=== PATIENT | male | born 1935 | race Caucasian/White ===

== ENCOUNTER 2022-02-16 08:29 | Outpatient (REF) | payer MEDICARE, SELFPAY ==
--- NOTE | ~2022-02-16 | US_ITS ---
EXAMINATION: US ABDOMEN COMPLETE CLINICAL INFORMATION: Abdominal pain. COMPARISON: None TECHNIQUE: Real-time imaging of the abdominal viscera. FINDINGS: PANCREAS: Not well visualized due to bowel gas ABDOMINAL AORTA: The proximal, mid, and distal segments are normal in caliber. INFERIOR VENA CAVA: Visualized portions are normal. LIVER: Liver echotexture is increased. The liver is normal in size. The liver contour is normal. No focal hepatic lesion. There is no intrahepatic biliary duct dilatation seen. GALLBLADDER: Normal. The gallbladder is physiologically distended without evidence of stones, sludge, polyps, wall thickening or pericholecystic fluid. COMMON BILE DUCT: Normal in caliber measuring 0.6 cm in diameter. RIGHT KIDNEY: Normal. No hydronephrosis. No renal calculi or focal parenchymal lesions. The kidney measures 10.1 cm in maximum dimension. LEFT KIDNEY: Normal. No hydronephrosis. No renal calculi or focal parenchymal lesions. The kidney measures 10.8 cm in maximum dimension. SPLEEN: Normal. The spleen measures 9.6 cm in maximum dimension. FREE FLUID: None. US/US abdomen complete IMPRESSION: Echogenic liver. Differential would include fatty infiltration and hepatocellular disease. Non-visualization of the pancreas. Otherwise unremarkable exam.
== END 2022-02-16 08:30 | disposition home or self-care (01) ==
LOC: HO.HMGCX 08:29
PROVIDERS: Visit Provider Internal Medicine
DX: R79.89 Other specified abnormal findings of blood chemistry (principal)
CPT/HCPCS: 76700

== ENCOUNTER 2023-12-09 15:06 | Outpatient (REF) | payer MEDICARE, SELFPAY ==
[2023-12-09 17:20] LABS: MANUAL DIFF FLAG NO
[2023-12-09 17:46] LABS: Basophils Absolute Auto 0.1 X10*3/uL (0.0-0.2); Basophils Percent Auto 0.7 % (0-2); Eosinophils Absolute Auto 0.1 X10*3/uL (0.0-0.4); Eosinophils Percent Auto 1.9 % (0-4); Hematocrit 41.7 % (42.0-52.0); Hemoglobin 14.9 g/dl (14.0-18.0); Imm Gran Abs Auto 0.04 X10*3/uL (0.00-0.03); Imm Gran Pct Auto 0.6 % (0.0-0.4); Lymphocytes Absolute Auto 2.5 X10*3/uL (1.2-4.9); Mean Corpuscular HGB Conc 35.7 g/dl (31.0-36.0); Mean Corpuscular Hemoglobin 36.5 pg (27.0-33.0); Mean Corpuscular Volume 102.2 fL (80.0-98.0); Mean Platelet Volume 9.5 fL (9.4-12.4); Monocytes Absolute Auto 0.7 X10*3/uL (0.1-1.2); Monocytes Percent Auto 10.2 % (2-11); Neutrophils Absolute Auto 3.8 x10*3/uL (2.0-8.3); Neutrophils Percent Auto 52.6 % (45-73); Platelet Count 321 X10*3/uL (160-400); Red Blood Count 4.08 X10*6/uL (4.60-5.80); Red Cell Distribution Width 12.3 % (11.0-16.0); White Blood Count 7.2 X10*3/uL (4.8-10.8)
[2023-12-09 18:13] LABS: Alanine Aminotransferase 39 U/L (0-40); Albumin Level 4.1 g/dL (3.5-5.0); Alkaline Phosphatase 74 U/L (39-117); Anion Gap 10 (12-20); Aspartate Amino Transferase 43 U/L (5-37); Bilirubin Total 0.7 mg/dL (0.0-1.0); Blood Urea Nitrogen 9 mg/dL (9-16); Calcium 9.4 mg/dL (8.4-10.2); Carbon Dioxide 28 mmol/L (22-29); Chloride 102 mmol/L (96-108); Estimated Glomerular Filt Rate > 60; Glucose Random 88 mg/dL (60-115); Potassium 3.8 mmol/L (3.3-5.1); Sodium 136 mmol/L (135-145); Total Protein 7.4 g/dL (6.5-8.0)
[2023-12-09 18:22] LABS: TSH reflex Free T4 3.32 uIU/mL (0.32-4.0)
[2023-12-09 18:41] LABS: Folate 3.7 ng/mL (> or = 4.0); Vitamin B12 172 pg/mL (200-900)
== END 2023-12-09 15:07 | disposition home or self-care (01) ==
LOC: HO.CHCLDS 15:06
PROVIDERS: Visit Provider Internal Medicine
DX: R79.89 Other specified abnormal findings of blood chemistry (principal); E87.1 Hypo-osmolality and hyponatremia; D75.89 Other specified diseases of blood and blood-forming organs
CPT/HCPCS: 36415; 80053; 82607; 82746; 84443; 85025

== ENCOUNTER 2024-11-09 12:39 | Outpatient (REF) | payer MEDICARE, SELFPAY ==
--- OUTSIDE RECORDS SUMMARY | 2024-11-09 13:01 | XMS_ITS | Encounter Summary ---
Author Organization [employer] Address [address] [place] [address] Care Team Providers Care Counseling Director Name Role Phone Lisseth Cervantes MD Primary Care Provider [phone] Encounter Details Date Type Department Care Team (Latest Contact Info) Description 11/09/2024 Travel Social History Tobacco Use Types Packs/Day Years Used Date Smoking Tobacco: Never Smokeless Tobacco: Never Depression Answer Date Recorded Patient Health Questionnaire-9 Score 1 12/28/2022 Housing Stability Answer Date Recorded What is your housing situation today? Not on thang e 12/23/[address] you li ve. Do you have problems with any of the following? None of the above 12/23/2023 Food Insecurity Answer Date Recorded Within the past 12 months, y ou worried that your food would run out before you got money to buy more: Never True 05/11/2023 Within the past 12 months,th e food you bought just didn't last and you didn't have enough money to get more: Never True 05/2023 Transportation Answer Date Recorded In the past 12 months, has l ack of transportation kept you from medical appts, meetings, work or from getting things needed for daily living? No 05/11/2023 Utilities Answer Date Recorded In the past 12 months, has t he electric, gas, oil or water company threatened to shut off services in your home? No 05/11/2023 Depression Answer Date Recorded Patient Health Questionnaire-2 Score 0 12/28/2022 Sex and Gender Information Value Date Recorded Sex Assigned at Male 04/30/2022 10:32 AM EDT Legal Sex Male 10:32 AM EDT Gender Identity Male 04/30/2022 10:32 AM EDT Sexual Orientation Choose not to disclose 2021 10:32 AM EDT documented as of this encounter Plan of Treatment Not on file documented as of this encounter Visit Diagnoses Not on filedocumented in this encounter Additional Health Concerns Assessment Noted Time PHQ-9 Depression Total Score: 1 12/29/19 23 2:08 PM EDT documented as of this encounter Care Teams Counseling Director Relationship Specialty Start Date End Date Lisseth Cervantes MD [address] [place] [id number] PCP - General Internal Medicine 07/01/18 documented as of this encounter
--- OUTSIDE RECORDS SUMMARY | 2024-11-09 13:01 | XMS_ITS | Encounter Summary ---
Author Organization [employer] Address [address] [facility] 7[address] [place] [address] Care Team Providers Care Wire Photo Operator Name Role Phone Lisseth Cervantes MD Primary Care Provider [phone] Encounter Details Date Type Department Care Team ([facility] st Contact Info) Description 11/03/2024 Telephone [facility] [address] [place], [place] [phone] Lisseth Cervantes MD [address] [place], [place] [phone] Social History Tobacco Use Types Packs/Day Years [...] documented as of this encounter Care Teams Wire Photo Operator Relationship Specialty Start Date End Date Lisseth Cervantes MD [address] [place] [id number] PCP - General Internal Medicine 07/01/18 documented as of this encounter
--- OUTSIDE RECORDS SUMMARY | 2024-11-09 13:01 | XMS_ITS | Encounter Summary ---
Author Organization [employer] Address [address] [place] [address] 7t [place] [address] Care Team Providers Care Manager Talent Name Role Phone Lisseth Cervantes MD Primary Care Provider [phone] Encounter Details Date Type Department Care Team ([facility] st Contact Info) Description 01/04/2023 Orders Only [facility] [address] [place], [place] [phone] Lisseth Cervantes MD [address] [place], [place] [phone] Macrocytosis (Primary Dx) Social History Tobacco Use Types Packs/Day Years Used Date Smoking Tobacco: Never Smokeless Tobacco: Never Depression Answer Date Recorded Patient Health Questionnaire-9 Score 1 12/28/2022 Depression Answer Date Recorded Patient Health Questionnaire-2 Score 0 12/28/2022 Sex and Gender Information Value Date Recorded Sex Assigned at Male 04/30/2022 10:32 AM EDT Legal Sex Male 10:32 AM EDT Gender Identity Male 04/30/2022 10:32 AM EDT Sexual Orientation Choose not to disclose 2021 10:32 AM EDT COVID-19 Exposure Response Date Recorded In the last 10 days, have yo u been in contact with someone who was confirmed or suspected to have Coronavirus/COVID-19? No / Unsure 12/28/2022 1:50 PM EDT documented as of this encounter Plan of Treatment Scheduled Orders Name Type Priority Associated Diagnoses Orde r Schedule TSH W/Reflex to FT4 Lab Routine Macrocytosis Expected: 01/04/2023 (Approximate), Expires: 01/05/2024 CBC auto differential Lab Routine Macrocytosis Expected: 01/04/2023 (Approximate), Expires: 01/05/2024 Basic Metabolic Panel Lab Routine Macrocytosis Expected: 01/04/2023 (Approximate), Expires: 01/05/2024 documented as of this encounter Visit Diagnoses Diagnosis Macrocytosis- Primary Other specified diseases of blood and blood-forming organs documented in this encounter Additional Health Concerns Assessment Noted Time PHQ-9 Depression Total Score: 1 12/29/19 23 2:08 PM EDT documented as of this encounter Care Teams Manager Talent Relationship Specialty Start Date End Date Lisseth Cervantes MD [address] [place] [id number] PCP - General Internal Medicine 07/01/18 documented as of this encounter
--- OUTSIDE RECORDS SUMMARY | 2024-11-09 13:01 | XMS_ITS | Clinical Summary ---
Author Organization [employer] Address [address] [facility] 7t [place] [address] Care Team Providers Care Police Inspector Name Role Phone Lisseth Cervantes MD Primary Care Provider [phone] Allergies No known active allergies Medications Diclofenac Sodium 1 % gelIndications:L eft arm pain To apply to the affected area 3 times a day 100 g 4 Active cyanocobalamin (Vitamin B-12) 1000 MCG tabletIndication s:Vitamin B12 deficiency Take 1 tablet (1,000 mcg) by mouth Once per day. 30 tablet 11 4 12/10/19 25 Active folic acid (Folvite) 1 MG tabletIndication s:Folic acid deficiency (non anemic) Take 1 tablet (1 mg) by mouth Once per day. 30 tablet 11 4 12/10/19 25 Active tadalafil (Cialis) 5 MG tabletIndication s:Other male erectile dysfunction Take 1 tablet (5 mg) by mouth Once per day. 30 tablet 3 5 03/09/20 25 Active Active Problems Problem Noted Date Diagnosed Date Macrocytosis 12/27/2021 Finding of above normal blood pressure 2 Encounters Date Type Department Care Team Description 11/09/2024 11:30 AM EDT Office Visit [facility] [address] [place] [address] Lisseth Cervantes MD Other male erectile dysfunction (Primary Dx); Finding of above normal blood pressure 11/09/2024 Travel 11/03/2024 Telephone [facility] [address] [place] [address] Lisseth Cervantes MD Appointment Request 11/03/2024 Telephone [facility] [address] [place] [address] Lisseth Cervantes MD from Last 3 Months Immunizations Name Administration Dates Next Due Andrea SARS-CoV-2 Vaccination 09/14/2020 Moderna Covid-19 Vaccine 12+ 05/23/2021 Tdap 12/09/2023 Social History Tobacco Use Types Packs/Day Years Used Date Smoking Tobacco: Never Smokeless Tobacco: Never Tobacco Cessation:Counseling Given: Not Answered Depression Answer Date Recorded Patient Health Questionnaire-9 [...] not to disclose 2021 10:32 AM EDT Last Filed Vital Signs Vital Sign Reading Time Taken Comments Blood Pressure 144/70 11/09/2024 11:36 AM EDT Pulse 77 11/09/2024 11:36 AM EDT Temperature 36.4 ??C (97.5 ??F) 11/09/2024 11:36 AM E DT Respiratory Rate 20 11/09/2024 11:36 AM EDT Oxygen Saturation 98% 11/09/2024 11:36 AM EDT Inhaled Oxygen Concentration - - Weight 83.5 kg (184 lb) 11/09/2024 11:36 AM EDT Height 174 cm (5' 8.5 ) 11/09/2024 11:36 AM EDT Body Mass Index 27.57 11/09/2024 11:36 AM EDT Plan of Treatment Health Maintenance Due Date Last Done Comments Alcohol/Substance Use Screening 1947 Pneumococcal Vaccine: 50+ Years (1 of 1 - PCV) 1987 Zoster Vaccines (1 of 2) 1987 RSV Patients and Patients Aged 60 years or older (1 - 1-dose 75+ series) 01/10/2012 SDOH Screening 12/22/2023 12/21/2022 Depression Screening 12/29/2023 12/28/2022, 12/29/19 COVID-19 Vaccine ( season) 2024 06/18/2023, 04/25/2022, 12/01/2021, Additional history exists Influenza Vaccine (#1) 2024 Tobacco Screening 11/09/2025 11/09/2024 Lipid Panel 01/03/2028 01/02/2023 DTaP/Tdap/Td Vaccines (2 - Td or Tdap) 12/08/2033 12/09/2023 HIB Vaccines Aged Out No longer eligi ble based on patient's age to complete this topic HPV Vaccines Aged Out No longer eligi ble based on patient's age to complete this topic Hepatitis A Vaccines Aged Out No long er eligible based on patient's age to complete this topic Hepatitis B Vaccines Aged Out No long er eligible based on patient's age to complete this topic IPV Vaccines Aged Out No longer eligi ble based on patient's age to complete this topic Meningococcal Vaccine Aged Out No kurt serena eligible based on patient's age to complete this topic RSV under 20 months Aged Out No longe r eligible based on patient's age to complete this topic Rotavirus Vaccines Aged Out No longer eligible based on patient's age to complete this topic Procedures Procedure Name Priority Date/Time Associated Diagnosis Comments LIPID PANEL, STANDARD Routine 01/02/2023 10:07 AM EDT Annual physical exam from Last 3 Months or Most Recently Relevant to Health Maintenance Results * (ABNORMAL) Lipid Panel, Standard (01/02/2023 10:07 AM EDT) Cholesterol, Total 222(H) <200 mg/dL [facility] HDL Cholesterol 75 > OR = 40 mg/dL [facility] Triglycerides 84 <150 mg/dL [facility] LDL Cholesterol 129(H) mg/dL (calc) [facility] Comment: Reference range: <100 Desirable range <100 mg/dL for primary prevention; ?? <70 mg/dL for patients with CHD or diabetic patients with > or = 2 CHD risk factors. LDL-C is now calculated using the Yvonne calculation, which is a validated novel method providing better accuracy than the Friedewald equation in the estimation of LDL-C. Anuel SS et al. RANDY. 2013;310(19): 5959-1214 (http://education.Stunable/faq/MTD624) Chol/HDLC Ratio 3.0 <5.0 (calc) [facility] Non-HDL Cholesterol 147(H) <130 mg/dL (calc) [facility] Comment: For patients with diabetes plus 1 major ASCVD risk factor, treating to a non-HDL-C goal of <100 mg/dL (LDL-C of <70 mg/dL) is considered a therapeutic option. Blood Venous blood specimen / Unknown 01/02/2023 10:07 AM EDT 01/02/2023 10:07 AM EDT Narrative [facility] - 01/03/2023 5:34 AM EDT FASTING:YES FASTING: YES us Lisseth Cervantes MD LAB BLOOD ORDERABLES Final Result [facility] [address], [place] [address] [facility] [address] [place] [address] from Last 3 Months or Most Recently Relevant to Health Maintenance Insurance MEDICARE [facility] MEDEX CARE Care Teams Police Inspector Relationship Specialty Start Date End Date Lisseth Cervantes MD [address] [place] [id number] PCP - General Internal Medicine 07/01/18
--- OUTSIDE RECORDS SUMMARY | 2024-11-09 13:01 | XMS_ITS | Encounter Summary ---
Author Organization [employer] Address [address] [facility] 7t [place] [address] Care Team Providers Care Stationary Engineer Apprentice Name Role Phone Lisseth Cervantes MD Primary Care Provider [phone] Encounter Details Date Type Department Care Team ([facility] st Contact Info) Description 12/10/2023 Orders Only [facility] & PEDS [address] [place], [place] [phone] Lisseth Cervantes MD [address] [place], [place] [phone] Transaminitis (Primary Dx); Vitamin B12 deficiency; Folic acid deficiency (non anemic) Social History Tobacco Use Types Packs/Day Years Used Date Smoking Tobacco: Never Smokeless Tobacco: Never Depression Answer Date Recorded Patient Health Questionnaire-9 Score 1 12/28/2022 Housing Stability Answer Date Recorded What is your housing situation today? I have norma mayorga 05/11/[address] you li ve. Do you have problems with any of the following? None of the above 05/11/2023 Food Insecurity Answer Date Recorded Within the [...] Type Priority Associated Diagnoses Orde r Schedule Hepatic Function Panel Lab Routine Transaminitis Expected: 12/10/2023 (Approximate), Expires: 12/09/2024 documented as of this encounter Visit Diagnoses Diagnosis Transaminitis- Primary Nonspecific elevation of levels of transaminase or lactic acid dehydrogenase (LDH) Vitamin B12 deficiency Other B-complex deficiencies Folic acid deficiency (non anemic) Other B-complex deficiencies documented in this encounter Additional Health Concerns Assessment Noted Time PHQ-9 Depression Total Score: 1 12/29/19 23 2:08 PM EDT documented as of this encounter Care Teams Stationary Engineer Apprentice Relationship Specialty Start Date End Date Lisseth Cervantes MD [address] [place] [phone] PCP - General Internal Medicine 07/01/18 documented as of this encounter
--- OUTSIDE RECORDS SUMMARY | 2024-11-09 13:01 | XMS_ITS | Encounter Summary ---
Author Organization [employer] Address [address] [place] [address] [facility] [place] [address] Care Team Providers Care Joggle Press Operator Name Role Phone Lisseth Cervantes MD Primary Care Provider [phone] Reason for Referral * Medications - Closed Specialty Diagnoses / Procedures Referred By Brandan ace Referred To Contact Diagnoses Other male erectile dysfunction Lisseth Cervantes MD [address] [place] [address] Phone: tel: fax: Referral ID Status Reason Start Date Expiration Date Visits Re quested Visits Authorized [id number] Closed 11/09/2024 11/09/2025 1 1 Reason for Visit * Reason Comments Erectile Dysfunction Encounter Details Date Type Department Care Team ([facility] Contact Info) Description 11/09/2024 11:30 AM EDT Office Visit [facility] MED & PEDS [address] [place] [address] Lisseth Cervantes MD [address] [place] [address] Other male erectile dysfunction (Primary Dx); Finding of above normal blood pressure Social History Tobacco Use Types Packs/Day Years [...] AM EDT documented as of this encounter Last Filed Vital Signs Vital Sign Reading [...] Mass Index 27.57 11/09/2024 11:36 AM EDT documented in this encounter Progress Notes * Lisseth Cervantes MD - 11/09/2024 11:30 AM EDT SUBJECTIVE Rafi Bhandari is a 89 y.o. male who presents for Erectile Dysfunction. Erectile Dysfunction This is a chronic problem. The current episode started more than 1 month ago. The problem has been gradually worsening since onset. The nature of his difficulty is penetration. Non-physiologic factors contributing to erectile dysfunction are a decreased libido. He reports his erection duration to be 1 to 5 minutes. Irritative symptoms do not include frequency, nocturia or urgency. Obstructive symptoms include dribbling and incomplete emptying. Pertinent negatives include no chills, dysuria, genital pain, hematuria, hesitancy or inability to urinate. Nothing aggravates the symptoms. Past treatments include nothing. Improvement on treatment: No treatment tried. Tumescence and Rigidity : 60 % . Patient Active Problem List Diagnosis Macrocytosis Finding of above normal blood pressure No Known Allergies Current Outpatient Medications on File Prior to Visit Medication Sig Dispense Refill cyanocobalamin (Vitamin B-12) 1000 MCG tablet Take 1 tablet (1,000 mcg) by mouth Once per day. 30 tablet 11 Diclofenac Sodium 1 % gel To apply to the affected area 3 times a day 100 g 0 folic acid (Folvite) 1 MG tablet Take 1 tablet (1 mg) by mouth Once per day. 30 tablet 11 No current facility-administered medications on file prior to visit. Review of Systems Constitutional: Negative for chills, diaphoresis and fatigue. Respiratory: Negative for cough, choking and shortness of breath. Genitourinary: Positive for decreased libido and incomplete emptying. Negative for dysuria, frequency, hematuria, hesitancy, nocturia and urgency. OBJECTIVE Vitals: 11/09/24 1136 BP: (!) 144/70 BP Location: Left arm Patient Position: Sitting BP Cuff Size: Adult long Pulse: 77 Resp: 20 Temp: 97.5 ??F (36.4 ??C) TempSrc: Oral SpO2: 98% Weight: 184 lb (83.5 kg) Height: 5' 8.5 (1.74 m) Physical Exam Constitutional: General: He is not in acute distress. Appearance: Normal appearance. He is not ill-appearing, toxic-appearing or diaphoretic. Cardiovascular: Rate and Rhythm: Normal rate. Pulmonary: Effort: Pulmonary effort is normal. Abdominal: Palpations: Abdomen is soft. Neurological: Mental Status: He is alert. Assessment/Plan Assessment/Plan Diagnoses and all orders for this visit: Other male erectile dysfunction - Testosterone, Total, males (Adult), IA; Future - FSH; Future - Estradiol; Future - tadalafil (Cialis) 5 MG tablet; Take 1 tablet (5 mg) by mouth Once per day. Finding of above normal blood pressure BP check at home. Report the readings in 1 week. DASH diet. documented in this encounter Plan of Treatment Scheduled Orders Name Type Priority Associated Diagnoses Orde r Schedule Testosterone, Total, males (Adult), IA Lab Routine Other male erectile dysfunction Expected: 11/09/2024, Expires: 11/09/2025 FSH Lab Routine Other male erectile dysfunction Expected: 11/09/2024, Expires: 11/09/2025 Estradiol Lab Routine Other male erectile dysfunction Expected: 11/09/2024, Expires: 11/09/2025 documented as of this encounter Visit Diagnoses Diagnosis Other male erectile dysfunction- Primary Finding of above normal blood pressure documented in this encounter Additional Health Concerns Assessment Noted Time PHQ-9 Depression Total Score: 1 12/29/19 23 2:08 PM EDT documented as of this encounter Care Teams Joggle Press Operator Relationship Specialty Start Date End Date Lisseth Cervantes MD [address] [place] [id number] PCP - General Internal Medicine 07/01/18 documented as of this encounter
--- OUTSIDE RECORDS SUMMARY | 2024-11-09 13:01 | XMS_ITS | Clinical Summary ---
Author Organization [facility] Address [address] [place] [address] Care Team Providers Care Back Gray Cloth Washer Name Role Phone Unavailable Primary Care Provider Unavailabl e Social History Tobacco Use Types Packs/Day Years Used Date Smoking Tobacco: Never Assessed Sex and Gender Information Value Date Recorded Sex Assigned at Not on file Gender Identity Not on file Sexual Orientation Not on file Job Start Date Occupation Industry Not on file Not on file Not on file Plan of Treatment Health Maintenance Due Date Last Done Comments Depression Screening 1947 Preventative Health Evaluation 1955 Shingrix-Zoster Vaccine (1 o f 2) 1987 Fall Risk Assessment 2002 Pneumococcal Vaccine (1 of 1 - PCV) 2002 RSV Adult > 60+ Yrs or (1 - 1-dose 75+ series) 01/10/2012 COVID-19 Vaccine (3 - 2023-2 5 season) 2024 05/23/2021, 09/14/2020 Influenza Vaccine (#1) 2024 DTap / Tdap / Td (2 - Td or Tdap) 12/08/2033 12/09/2023 Hepatitis B Vaccines Aged Out No long er eligible based on patient's age to complete this topic RSV Ped < 20 months Aged Out No longe r eligible based on patient's age to complete this topic
[2024-11-10 07:49] LABS: Follicle Stimulating Hormone 6.5 mIU/mL (1.4-12.8)
[2024-11-13 01:03] LABS: Testosterone, Total 395 ng/dL (250-1100)
[2024-12-14 10:39] LABS: Estradiol Ultra Sensitive 29 pg/mL (< OR = 29)
== END 2024-11-09 12:40 | disposition home or self-care (01) ==
LOC: HO.CHCLDS 12:39
PROVIDERS: Visit Provider Internal Medicine
DX: N52.8 Other male erectile dysfunction (principal)
CPT/HCPCS: 36415; 82670; 83001; 84403

== ENCOUNTER 2024-12-30 10:58 | Outpatient (REF) | payer MEDICARE, SELFPAY ==
--- OUTSIDE RECORDS SUMMARY | 2024-12-30 11:44 | XMS_ITS | Clinical Summary ---
Author Organization [facility] Address [address] [place] [address] Care Team Providers Care Home Care Chaplain Name Role Phone Unavailable Primary Care Provider [...] season) 2024 05/23/2021, 09/14/2020 Influenza Vaccine (#1) 2025 DTap / Tdap / Td (2 - Td or Tdap) 12/08/2033 12/09/2023 Hepatitis B Vaccines Aged Out No long er eligible based on patient's age to complete this topic RSV Ped < 20 months Aged Out No longe r eligible based on patient's age to complete this topic
--- OUTSIDE RECORDS SUMMARY | 2024-12-30 11:44 | XMS_ITS | Clinical Summary ---
Author Organization [employer] Address [address] [facility] 7[address] [place] [address] Care Team Providers Care Lining Parts Sewer Name Role Phone Lisseth Cervantes MD Primary Care Provider [phone]- [phone] Allergies No known active allergies Medications Diclofenac Sodium 1 % gelIndications: Left arm pain To apply to the affected area 3 times a day 100 g 10/25/19 24 Active tadalafil (Cialis) 5 MG tabletIndicatio ns:Other male erectile dysfunction Take 1 tablet (5 mg) by mouth Once per day. 30 tablet 3 11/14/19 25 025 Active tadalafil (Cialis) 10 MG tabletIndicatio ns:Other male erectile dysfunction Take 1 tablet (10 mg) by mouth if needed each day for erectile dysfunction. 10 tablet 12/31/19 25 025 Active cyanocobalamin (Vitamin B-12) 1000 MCG tabletIndicatio ns:Vitamin B12 deficiency Take 1 tablet (1,000 mcg) by mouth Once per day. 30 tablet 11 12/10/19 24 025 folic acid (Folvite) 1 MG tabletIndicatio ns:Folic acid deficiency (non anemic) Take 1 tablet (1 mg) by mouth Once per day. 30 tablet 11 12/10/19 24 025 tadalafil (Cialis) 10 MG tabletIndicatio ns:Other male erectile dysfunction Take 1 tablet (10 mg) by mouth if needed each day for erectile dysfunction. 10 tablet 11/27/19 25 025 Discontinued(Ot her) tadalafil (Cialis) 10 MG tabletIndicatio ns:Other male erectile dysfunction Take 1 tablet (10 mg) by mouth if needed each day for erectile dysfunction. 10 tablet 12/31/19 25 025 Discontinued(Re order (will not trigger notification to Pharmacy)) tadalafil (Cialis) 10 MG tabletIndicatio ns:Other male erectile dysfunction Take 1 tablet (10 mg) by mouth if needed each day for erectile dysfunction. 10 tablet 12/31/19 25 025 Discontinued(Re order (will not trigger notification to Pharmacy)) Active Problems Problem Noted Date Diagnosed Date Vitamin B12 deficiency 12/30/2024 Macrocytosis 12/27/2021 Finding of above normal blood pressure Encounters Date Type Department Care Team Description 12/30/2024 10:00 AM EDT Office Visit [facility] [address] [place] [address] Lisseth Cervantes MD Macrocytosis (Primary Dx); Other male erectile dysfunction; Elevated TSH; Hyponatremia; Vitamin B12 deficiency; Finding of above normal blood pressure; Decreased energy 12/30/2024 Travel 12/14/2024 Results Follow-Up [facility] [address] [place] [address] Lisseth Cervantes MD Testosterone, Total, males (Adult), IA, FSH, Estradiol 11/18/2024 Telephone [facility] [address] [place] [address] Lisseth Cervantes MD Prior Authorization 11/13/2024 Orders Only [facility] [address] [place] [address] Lisseth Cervantes MD Other male erectile dysfunction 11/09/2024 11:30 AM EDT Office Visit [facility] [address] [place] [address] Lisseth Cervantes MD Other male erectile dysfunction (Primary Dx); Finding of above normal blood pressure 11/09/2024 Travel 11/03/2024 Telephone [facility] [address] [place] [address] Lisseth Cervantes MD Appointment Request 11/03/2024 Telephone [facility] [address] [place] [address] Lisseth Cervantes MD from Last 3 Months Immunizations Immunization Administration Dates Next Due Andrea SARS-CoV-2 Vaccination 09/14/2020 Moderna Covid-19 Vaccine 12+ 05/23/2021 Tdap 12/09/2023 Social History Tobacco Use Types Packs/Day Years Used Date Smoking Tobacco: Never Smokeless Tobacco: Never Tobacco Cessation:Counseling Given: Not Answered Depression Answer Date Recorded Patient Health Questionnaire-9 Score 2 12/30/2024 Patient Health Questionnaire-9 Score 2 12/30/2024 Last PHQ-9: Questionnaire Data Not on file 0 12/30/2024 Housing Stability Answer Date Recorded What is your housing situation today? I have norma mayorga 12/30/[address] you li ve. Do you have problems with any of the following? None of the above 12/30/2024 Food Insecurity Answer Date Recorded Within the past 12 months, y ou worried that your food would run out before you got money to buy more: Never True 12/30/2024 Within the past 12 months,th e food you bought just didn't last and you didn't have enough money to get more: Never True 08/2024 Transportation Answer Date Recorded In the past 12 months, has l ack of transportation kept you from medical appts, meetings, work or from getting things needed for daily living? No 12/30/2024 Utilities Answer Date Recorded In the past 12 months, has t he electric, gas, oil or water company threatened to shut off services in your home? No 12/30/2024 Depression Answer Date Recorded Patient Health Questionnaire-2 Score 0 12/30/2024 Internet Access Answer Date Recorded Internet Access Q1 Yes 12/30/2024 Internet Access Q2 Not on file 12/30/2024 Sex and Gender Information Value Date Recorded Sex Assigned at Male 04/30/2022 10:32 AM EDT Legal Sex Male 10:32 AM EDT Gender Identity Male 04/30/2022 10:32 AM EDT Sexual Orientation Choose not to disclose 2021 10:32 AM EDT Last Filed Vital Signs Vital Sign Reading Time Taken Comments Blood Pressure 141/77 12/30/2024 10:15 AM EDT Pulse 76 12/30/2024 10:15 AM EDT Temperature 36.7 C (98.1 F) 12/30/2024 10:15 AM EDT Respiratory Rate 14 12/30/2024 10:15 AM EDT Oxygen Saturation 96% 12/30/2024 10:15 AM EDT Inhaled Oxygen Concentration - - Weight 84.4 kg (186 lb) 12/30/2024 10:15 AM EDT Height 174 cm (5' 8.5 ) 12/30/2024 10:15 AM EDT Body Mass Index 27.87 12/30/2024 10:15 AM EDT Plan of Treatment Health Maintenance Due Date Last Done Comments Pneumococcal Vaccine: 50+ Years (1 of 1 - PCV) 1987 Zoster Vaccines (1 of 2) 1987 RSV Patients and Patients Aged 60 years or older (1 - 1-dose 75+ series) 01/10/2012 COVID-19 Vaccine ( season) 2024 06/18/2023, 04/25/2022, 12/01/2021, Additional history exists Influenza Vaccine (#1) 2025 Alcohol/Substance Use Screening 12/30/2025 12/30/2024 Depression Screening 12/30/2025 12/30/2024, 12/31/19 SDOH Screening 12/30/2025 12/30/2024 Tobacco Screening 12/30/2025 12/30/2024 Lipid Panel 01/03/2028 01/02/2023 DTaP/Tdap/Td Vaccines (2 [...] patient's age to complete this topic Meningococcal B Vaccine Aged Out No l onger eligible based on patient's age to complete [...] Procedure Name Priority Date/Time Associated Diagnosis Comments ECG 12-LEAD Routine 11/09/2024 1:08 PM EDT Other male erectile dysfunction ESTRADIOL Routine 11/09/2024 12:40 PM EDT Other male erectile dysfunction FSH Routine 11/09/2024 12:40 PM EDT Other male erectile dysfunction TESTOSTERONE, TOTAL, MALES (ADULT), IA Routine 11/09/2024 12:40 PM EDT Other male erectile dysfunction LIPID PANEL, STANDARD Routine 01/02/2023 10:07 AM EDT Annual physical exam from Last 3 Months or Most Recently Relevant to Health Maintenance Results * ECG 12 lead (11/09/2024 1:08 PM EDT) Lisseth Rosenberg MD - 11/09/2024 1:08 PM EDT Sinus rhythm. Heart rate 61 bpm. [place] -18 degrees: Horizontal axis. No sign of left atrial enlargement or right atrial enlargement. No sign of hypertrophy. No ST elevation or ST depression. Normal variant EKG. us Lisseth Cervantes MD ECG ORDERABLES Final Resul t * Estradiol (11/09/2024 12:40 PM EDT) Estradiol Ultra Sensitive 29 < OR = 29 pg/mL [facility] Comment:See Note 1Note 1This test was developed and its analytical performancecharacteristics have been determined by [facility]. It has not been cleared or approved by theFDA. This assay has been validated pursuant to the CLIAregulations and is used for clinical purposes.THIS TEST WAS PERFORMED AT:[employer] [employer] [facility] [id number] [place] [id number] GLYNN MD,PHD,LOBO Blood Venous blood specimen / Unknown 11/09/2024 12:40 PM EDT 11/09/2024 2:10 PM EDT us Lisesth Cervantes MD LAB BLOOD ORDERABLES Final Result Performing Organization Address [facility] de Phone Number [facility] [address] [place] [phone] * Testosterone, Total, males (Adult), IA (11/09/2024 12:40 PM EDT) Pathologist [facility] Testosterone, Total 395 250 - 1100 ng/dL [facility] Comment:Men with clinically significant hypogonadalsymptoms and testosterone values repeatedly inthe range of the 200-300 ng/dL or less, maybenefit from testosterone treatment afteradequate risk and benefits counseling.For additional information, please refer tohttp://education.[employer]/faq/RgusiRtwtohdkiterMGVYZXCEE819(This link is being provided for informational/educational purposes only.)This test was developed and its analytical performancecharacteristics have been determined by [facility] [place], [place]. It hasnot been cleared or approved by the U.S. Food and DrugAdministration. This assay has been validated pursuantto the CLIA regulations and is used for clinicalpurposes.THIS TEST WAS PERFORMED AT:[employer] [place] [address]FVRIVTLALEKSANDRA CHRISTOPHER MD,PHD Blood Venous blood specimen / Unknown 11/09/2024 12:40 PM EDT 11/09/2024 2:10 PM EDT us Lisseth Cervantes MD LAB BLOOD ORDERABLES Final Result [facility] [address] [place] [phone] [phone] * FSH (11/09/2024 12:40 PM EDT) Follicle Stimulating Hormone 6.5 1.4 - 12.8 mIU/mL [facility] Comment:THIS TEST WAS PERFOR MED AT:[employer] [address] [id number] LYNN MD Blood Venous blood specimen / Unknown 11/09/2024 12:40 PM EDT 11/09/2024 2:10 PM EDT us Lisseth Cervantes MD LAB BLOOD ORDERABLES Final Result [facility] [address] [place] [address] [phone] * (ABNORMAL) Lipid Panel, Standard (01/02/2023 10:07 AM EDT) Pathologist [facility] Cholesterol, Total 222(H) <200 mg/dL [facility] [place] [employer] HDL Cholesterol 75 > OR = 40 mg/dL [facility] [place] [facility] Triglycerides 84 <150 mg/dL [facility] [place] [facility] LDL Cholesterol 129(H) mg/dL (calc) [facility] [place] [facility] Comment: Reference range: <100 Desirable range <100 mg/dL for primary prevention; <70 mg/dL for patients with CHD or diabetic patients with > or = 2 CHD risk factors. LDL-C is now calculated using the Anuel-Jonna calculation, which is a validated novel method providing better accuracy than the Friedewald equation in the estimation of LDL-C. Anuel CAMPA et al. RANDY. 2013;310(19): 8681-9541 (http://education.[employer]/faq/RVA533) Chol/HDLC Ratio 3.0 <5.0 (calc) [facility] [place] [facility] Non-HDL Cholesterol 147(H) <130 mg/dL (calc) [facility] [place] [facility] Comment: For patients with diabetes plus 1 major ASCVD risk factor, treating to a non-HDL-C goal of <100 mg/dL (LDL-C of <70 mg/dL) is considered a therapeutic option. Blood Venous blood specimen / Unknown 01/02/2023 10:07 AM EDT 01/02/2023 10:07 AM EDT Narrative [facility] - 01/03/2023 5:34 AM EDT FASTING:YES FASTING: YES us Lisseth Cervantes MD LAB BLOOD ORDERABLES Final Result [facility] [address], [place] [address] [facility] [address] [place] [phone] from Last 3 Months or Most Recently Relevant to Health Maintenance Insurance MEDICARE Member Subscriber Plan / Payer (Ef fective 2022-Present) Name:Rafi Bhandari Member ID:[id number] Relation to Subscriber:Self Name:Rafi Bhandari Subscriber ID:[id number] Payer ID:[facility] Group ID:Not on file Type:Medicare Address: [address] [address] [facility] MEDEX CARE Care Teams Lining Parts Sewer Relationship Specialty Start Date End Date Lisseth Cervantes MD [address] [place] [phone] PCP - General Internal Medicine 07/01/18
[2024-12-30 14:52] LABS: MANUAL DIFF FLAG NO
[2024-12-30 15:04] LABS: Hematocrit 40.3 % (42.0-52.0); Hemoglobin 14.3 g/dl (14.0-18.0); Imm Gran Abs Auto 0.01 X10*3/uL (0.00-0.03); Imm Gran Pct Auto 0.2 % (0.0-0.4); Lymphocytes Absolute Auto 2.3 X10*3/uL (1.2-4.9); Mean Corpuscular HGB Conc 35.5 g/dl (31.0-36.0); Mean Corpuscular Hemoglobin 35.3 pg (27.0-33.0); Mean Corpuscular Volume 99.5 fL (80.0-98.0); NRBC Abs Auto 0.000 X10*3/uL (0.0-0.012); NRBC Pct Auto 0.0 /100WBC (0.0-0.2); Platelet Count 306 X10*3/uL (160-400); Red Blood Count 4.05 X10*6/uL (4.60-5.80); White Blood Count 5.8 X10*3/uL (4.8-10.8)
[2024-12-30 15:35] LABS: Alanine Aminotransferase 26 U/L (0-40); Albumin Level 4.2 g/dL (3.5-5.0); Alkaline Phosphatase 68 U/L (39-117); Anion Gap 13 (12-20); Aspartate Amino Transferase 44 U/L (5-37); Blood Urea Nitrogen 5 mg/dL (9-16); Calcium 8.7 mg/dL (8.4-10.2); Carbon Dioxide 26 mmol/L (22-29); Chloride 103 mmol/L (96-108); Cholesterol 185 mg/dL (<200); Estimated Glomerular Filt Rate > 60; HDL Cholesterol 66 mg/dL (>40); Potassium 4.1 mmol/L (3.3-5.1); Sodium 138 mmol/L (135-145); Total Protein 6.8 g/dL (6.5-8.0); Triglycerides 64 mg/dL (<150)
[2024-12-30 15:41] LABS: Folate 3.5 ng/mL (> or = 4.0); Vitamin B12 253 pg/mL (200-900)
== END 2024-12-30 10:59 | disposition home or self-care (01) ==
LOC: HO.CHCLDS 10:58
PROVIDERS: Visit Provider Internal Medicine
DX: D75.89 Other specified diseases of blood and blood-forming organs (principal); R79.89 Other specified abnormal findings of blood chemistry; E53.8 Deficiency of other specified B group vitamins; N52.8 Other male erectile dysfunction; E87.1 Hypo-osmolality and hyponatremia
CPT/HCPCS: 36415; 80053; 80061; 82607; 82746; 84443; 85025

== ENCOUNTER 2025-03-24 08:39 | Outpatient (REF) | payer MEDICARE, SELFPAY ==
--- NOTE | ~2025-03-24 | US_ITS ---
EXAMINATION: US ABDOMEN COMPLETE CLINICAL INFORMATION: Elevated LFTs. COMPARISON: February 16, 2022 TECHNIQUE: Real-time ultrasound of the abdomen using grayscale technique. FINDINGS: PANCREAS: No peripancreatic fluid collections. ABDOMINAL AORTA: The proximal, mid, and distal segments are normal in caliber. INFERIOR VENA CAVA: Visualized portions are normal. LIVER: Liver measures 15 cm. Coarse echotexture. No nodular contour surface. No gross focal solid or cystic lesion detected. No intrahepatic biliary ductal dilatation. GALLBLADDER: Fluid-filled and nondistended. No pericholecystic fluid collection or gallbladder wall thickening. COMMON BILE DUCT: 4 mm. RIGHT KIDNEY: 10 cm. Normal echotexture. Normal renal cortical thickness. No hydronephrosis. No gross solid or cystic lesion. LEFT KIDNEY: 10 cm. Normal echotexture. Normal renal cortical thickness. No hydronephrosis. No solid or cystic lesion.. SPLEEN: 9 cm. No focal lesion.. FREE FLUID: None. US/US abdomen complete IMPRESSION: Probable hepatic steatosis. No cholelithiasis. No hydronephrosis. No ascites. Electronically signed by: Jose Mendoza MD 03/24/2025 10:54 AM EDT
--- OUTSIDE RECORDS SUMMARY | 2025-03-24 09:42 | XMS_ITS | Encounter Summary ---
Author Organization [employer] Address [address] [place] [address] [address] [place] [address] Care Team Providers Care Message And Delivery Service Pricer Name Role Phone Lisseth Cervantes MD Primary Care Provider [phone]- [phone] Encounter Details Date Type Department Care Team ([facility] st Contact Info) Description 01/04/2023 Orders Only [facility] [address] [place], [place] [phone] Lisseth Cervantes MD [address] [place], [place] [phone] Macrocytosis (Primary Dx) Social History Tobacco Use [...] documented as of this encounter Care Teams Message And Delivery Service Pricer Relationship Specialty Start Date End Date Lisseth Cervantes MD [address] [place] [phone] PCP - General Internal Medicine 07/01/18 documented as of this encounter
--- OUTSIDE RECORDS SUMMARY | 2025-03-24 09:42 | XMS_ITS | Encounter Summary ---
Author Organization [employer] Address [address] [place] [address] 7 [place] [address] Care Team Providers Care Transition Advisor Name Role Phone Lisseth Cervantes MD Primary Care Provider [phone]- [phone] Reason for Referral * Medications - Closed Specialty Diagnoses / Procedures Referred By Brandan ace Referred To Contact Diagnoses Other male erectile dysfunction Lisseth Cervantes MD [address] [place] [address] Phone: tel: fax: Referral ID Status Reason Start Date Expiration Date Visits Re quested Visits Authorized [id number] Closed 1 1 Encounter Details Date Type Department Care Team ([facility] Contact Info) Description 02/02/2025 Orders Only [facility] [address] [place], [place] [phone] Lisseth Cervantes MD [address] [place], [place] [phone] Other male erectile dysfunction; Other male erectile dysfunction Social History Tobacco Use Types Packs/Day Years [...] encounter Visit Diagnoses Diagnosis Other male erectile dysfunction documented in this encounter Additional Health Concerns Assessment Noted Time PHQ-9 Depression Total Score: 2 12/31/19 25 10:38 AM EDT documented as of this encounter Care Teams Transition Advisor Relationship Specialty Start Date End Date Lisseth Cervantes MD [address] [place] [phone] PCP - General Internal Medicine 07/01/18 documented as of this encounter
--- OUTSIDE RECORDS SUMMARY | 2025-03-24 09:42 | XMS_ITS | Clinical Summary ---
Author Organization [facility] Address [address] [place] [address] Care Team Providers Care Mash Filter Cloth Changer Name Role Phone Unavailable Primary Care Provider [...] 75+ series) 01/10/2012 COVID-19 Vaccine (3 - 2024-2 6 season) 2025 05/23/2021, 09/14/2020 Influenza Vaccine (#1) 2025 DTap / Tdap / Td (2 - Td or Tdap) 12/08/2033 12/09/2023 Hepatitis B Vaccines Aged Out No long er eligible based on patient's age to complete this topic RSV Ped < 20 months Aged Out No longe r eligible based on patient's age to complete this topic
--- OUTSIDE RECORDS SUMMARY | 2025-03-24 09:42 | XMS_ITS | Encounter Summary ---
Author Organization [employer] Address [address] [place] [address] [address]t [place] [address] Care Team Providers Care Vessel Scrapper Name Role Phone Lisseth Cervantes MD Primary Care Provider [phone]- [phone] Encounter Details Date Type Department Care Team ([facility] st Contact Info) Description 12/10/2023 Orders Only [facility] [address] [place], [place] [phone] Lisseth Cervantes MD [address] [place], [place] [phone] Transaminitis (Primary Dx); Vitamin B12 deficiency; Folic [...] documented as of this encounter Care Teams Vessel Scrapper Relationship Specialty Start Date End Date Lisseth Cervantes MD [address] [place] [phone] PCP - General Internal Medicine 07/01/18 documented as of this encounter
--- OUTSIDE RECORDS SUMMARY | 2025-03-24 09:42 | XMS_ITS | Clinical Summary ---
Author Organization [employer] Address [address] [facility] [address] [place] [address] Care Team Providers Care Mma Fighter Name Role Phone Lisseth Cervantes MD Primary Care Provider [phone]- [phone] Allergies No known active allergies Medications Diclofenac Sodium 1 % gelIndications:L eft arm pain To apply to the affected area 3 times a day 100 g 4 Active cyanocobalamin (Vitamin B-12) 500 MCG tabletIndication s:Vitamin B12 deficiency Take 1 tablet (500 mcg) by mouth Once per day. 30 tablet 11 5 01/01/20 26 Active folic acid (Folvite) 1 MG tabletIndication s:Folic acid deficiency Take 1 tablet (1 mg) by mouth Once per day. 30 tablet 3 5 01/01/20 26 Active tadalafil (Cialis) 10 MG tabletIndication s:Other male erectile dysfunction Take 1 tablet (10 mg) by mouth if needed each day for erectile dysfunction. 10 tablet 5 Active tadalafil (Cialis) 5 MG tabletIndication s:Other male erectile dysfunction Take 1 tablet (5 mg) by mouth Once per day. 30 tablet 3 5 06/02/20 25 Active Active Problems Problem Noted Date Diagnosed Date Vitamin B12 deficiency 12/30/2024 Macrocytosis 12/27/2021 Finding of above normal blood pressure 2 Encounters Date Type Department Care Team Description 02/02/2025 Orders Only [facility] PEDS [address] [place] [address] Lisseth Cervantes MD Other male erectile dysfunction; Other male erectile dysfunction 01/27/2025 Telephone [facility] MED & PEDS [address] [place] [address] Lisseth Cervantes MD 12/31/2024 Orders Only [facility] MED & PEDS [address] [facility] [place] [address] Lisseth Cervantes MD Folic acid deficiency (Primary Dx); Vitamin B12 deficiency; Transaminitis 12/30/2024 10:00 AM EDT Office Visit [facility] MED & PEDS [address] [facility] [address] Lisseth Cervantes MD Macrocytosis (Primary Dx); Other male erectile dysfunction; Elevated TSH; Hyponatremia; Vitamin B12 deficiency; Finding of above normal blood pressure; Decreased energy 12/30/2024 Travel from Last 3 Months Immunizations Immunization Administration [...] 75+ series) 01/10/2012 COVID-19 Vaccine ( season) 2025 06/18/2023, 04/25/2022, 12/01/2021, Additional history exists Influenza Vaccine (#1) 2025 Alcohol/Substance Use Screening 12/30/2025 12/30/2024 Depression Screening 12/30/2025 12/30/2024, 12/31/19 SDOH Screening 12/30/2025 12/30/2024 Tobacco Screening 12/30/2025 12/30/2024 Lipid Panel 12/30/2029 12/30/2024, 01/02/2023 DTaP/Tdap/Td Vaccines (2 - Td or [...] Procedure Name Priority Date/Time Associated Diagnosis Comments VITAMIN B12/FOLATE, SERUM PANEL Routine 12/30/2024 11:04 AM EDT Vitamin B12 deficiency TSH W/REFLEX TO FT4 Routine 12/30/2024 1 1:04 AM EDT Elevated TSH Hyponatremia LIPID PANEL, STANDARD Routine 12/30/2024 11:04 AM EDT Elevated TSH Hyponatremia COMPREHENSIVE METABOLIC PANEL Routine 12/30/2024 11:04 AM EDT Macrocytosis CBC WITH AUTO DIFFERENTIAL Routine 12/30/2024 11:04 AM EDT Other male erectile dysfunction Macrocytosis from Last 3 Months Results * (ABNORMAL) Vitamin B12/Folate, Serum Panel (12/30/2024 11:04 AM EDT) Vitamin B12 253 200 - 900 pg/mL [facility] Comment:NORMAL 200-900 PG/ML INDETERMINATE 160-199 PG/ML DEFICIENT < 160 PG/ML Folate 3.5(L) > or = 4.0 ng/mL [facility] Comment:Reference Values:> o r = 4.0 ng/mL< 4.0 ng/mL suggests folate deficiency Methotrexate, aminopterin and folinic acid(leucovorin) are chemotherapeutic agents whose molecularstructures are similar to folate; therefore, the Architectfolate assay cannot be used for patients using these drugs. Blood Venous blood specimen / Unknown 12/30/2024 11:04 AM EDT 12/30/2024 2:51 PM EDT us Lisseth Cervantes MD LAB BLOOD ORDERABLES Final Result Performing Organization Address [facility] Co de Phone Number [facility] [address] [place] [phone] * TSH W/Reflex to FT4 (12/30/2024 11:04 AM EDT) Pathologist [facility] [place] TSH reflex Free T4 2.11 0.32 - 4.0 uIU/mL [facility] Blood Venous blood specimen / Unknown 12/30/2024 11:04 AM EDT 12/30/2024 2:49 PM EDT us Lisseth Cervantes MD LAB BLOOD ORDERABLES Final Result Performing Organization Address [facility] de Phone Number [facility] [address] [place] [phone] * (ABNORMAL) CBC auto differential (12/30/2024 11:04 AM EDT) White Blood Count 5.8 4.8 - 10.8 X10*3/uL [facility] Red Blood Count 4.05(L) 4.60 - 5.80 X10*6/uL [facility] Hemoglobin 14.3 14.0 - 18.0 g/dl [facility] Hematocrit 40.3(L) 42.0 - 52.0 % [facility] Mean Corpuscular Volume 99.5(H) 80.0 - 98.0 fL [facility] Mean Corpuscular Hemoglobin 35.3(H) 27.0 - 33.0 pg [facility] Mean Corpuscular HGB Conc 35.5 31.0 - 36.0 g/dl [facility] Red Cell Distribution Width 11.6 11.0 - 16.0 % [facility] Platelet Count 306 160 - 400 X10*3/uL [facility] Mean Platelet Volume 9.3(L) 9.4 - 12.4 fL [facility] Neutrophils Percent Auto 48.8 45 - 73 % [facility] Imm Gran Pct Auto 0.2 0.0 - 0.4 % [facility] Lymphocytes Percent Auto 39.3 20 - 40 % [facility] Monocytes Percent Auto 8.8 2 - 11 % [facility] Eosinophils Percent Auto 2.2 0 - 4 % [facility] Basophils Percent Auto 0.7 0 - 2 % [facility] NRBC Pct Auto 0.0 0.0 - 0.2 /100WBC [facility] Neutrophils Absolute Auto 2.8 2.0 - 8.3 x10*3/uL [facility] Imm Gran Abs Auto 0.01 0.00 - 0.03 X10*3/uL [facility] Lymphocytes Absolute Auto 2.3 1.2 - 4.9 X10*3/uL [facility] Monocytes Absolute Auto 0.5 0.1 - 1.2 X10*3/uL [facility] Eosinophils Absolute Auto 0.1 0.0 - 0.4 X10*3/uL [facility] Basophils Absolute Auto 0.0 0.0 - 0.2 X10*3/uL [facility] NRBC Abs Auto 0.000 0.0 - 0.012 X10*3/uL [facility] Blood Venous blood specimen / Unknown 12/30/2024 11:04 AM EDT 12/30/2024 2:51 PM EDT us Lisseth Cervantes MD LAB BLOOD ORDERABLES Final Result [facility] [address] [place] [phone] * (ABNORMAL) Lipid Panel, Standard (12/30/2024 11:04 AM EDT) Triglycerides 64 <150 mg/dL [facility] Comment:Desirable Triglyceri de: less than 150 mg/dLBorderline High Triglyceride 150-199 mg/dLHigh Triglyceride: 200-499 mg/dLVery High Triglyceride: greater than or equal to 5OO mg/dL Cholesterol 185 <200 mg/dL [facility] Comment:Desirable Cholestero l: less than 200 mg/dLBorderline High Cholesterol: 200-239 mg/dLHigh Cholesterol: greater than 239 mg/dL LDL Cholesterol Calculated 107(H) <100 mg/dL [facility] Comment:Desirable LDL: less than 100 mg/dLNear Optimal/Above Optimal LDL: 110- 129 mg/dLBorderline High LDL: 130-159 mg/dLHigh LDL: 160-189 mg/dLVery High LDL: greater than or equal to 190 mg/dL HDL Cholesterol 66 >40 mg/dL [facility] Comment:Desirable HDL: great er than 40 mg/dL Note: This HDL assay may give artificially low results in patients with liver disease. Blood Venous blood specimen / Unknown 12/30/2024 11:04 AM EDT 12/30/2024 2:49 PM EDT us Lisseth Cervantes MD LAB BLOOD ORDERABLES Final Result [facility] [address] [place] [phone] * (ABNORMAL) Comprehensive Metabolic Panel (12/30/2024 11:04 AM EDT) Sodium 138 135 - 145 mmol/L [facility] Potassium 4.1 3.3 - 5.1 mmol/L [facility] Chloride 103 96 - 108 mmol/L [facility] Carbon Dioxide 26 22 - 29 mmol/L [facility] Anion Gap 13 12 - 20 [facility] Urea Nitrogen (BUN) 5(L) 9 - 16 mg/dL [facility] Creatinine, Serum 0.67 0.5 - 1.4 mg/dL [facility] Estimated Glomerular Filt Rate >60 [facility] Comment:Chronic Kidney Disea se: Estimated GFR < 60 mL/min/1.98g8Gcfcoa Kidney Disease: Estimated GFR < 15 mL/min/1.73m2 Glucose 82 60 - 115 mg/dL [facility] Calcium 8.7 8.4 - 10.2 mg/dL [facility] Bilirubin, Total 0.8 0.0 - 1.0 mg/dL [facility] Aspartate Amino Transferase 44(H) 5 - 37 U/L [facility] Alanine Aminotransferase 26 0 - 40 U/L [facility] Total Protein 6.8 6.5 - 8.0 g/dL [facility] Albumin Level 4.2 3.5 - 5.0 g/dL [facility] Alkaline Phosphatase 68 39 - 117 U/L [facility] Blood Venous blood specimen / Unknown 12/30/2024 11:04 AM EDT 12/30/2024 2:49 PM EDT us Lisseth Cervantes MD LAB BLOOD ORDERABLES Final Result Performing Organization Address City/State/[facility] Co de Phone Number [facility] [address] [place] [phone] from Last 3 [place] [id number] [facility] MEDEX CARE Care Teams Mma Fighter Relationship Specialty Start Date End Date Lisseth Cervantes MD [address] [place] [phone] PCP - General Internal Medicine 07/01/18
--- OUTSIDE RECORDS SUMMARY | 2025-03-24 09:42 | XMS_ITS | Encounter Summary ---
Author Organization [employer] Address [address] [place] [address] [address] [place] [address] Care Team Providers Care Rehab Specialist Name Role Phone Lisseth Cervantes MD Primary Care Provider [phone]- [phone] Encounter Details Date Type Department Care Team ([facility] st Contact Info) Description 11/13/2024 Orders Only [facility] MED & PEDS [address] [place], [place] [phone] Lisseth Cervantes MD [address] [place], [place] [phone] Other male erectile dysfunction Social History Tobacco [...] documented as of this encounter Care Teams Rehab Specialist Relationship Specialty Start Date End Date Lisseth Cervantes MD [address] [place] [phone] PCP - General Internal Medicine 07/01/18 documented as of this encounter
== END 2025-03-24 08:40 | disposition home or self-care (01) ==
LOC: HO.US 08:39
PROVIDERS: PCP Internal Medicine; Visit Provider Internal Medicine
DX: R74.01 Elevation of levels of liver transaminase levels (principal)
CPT/HCPCS: 76700

== ENCOUNTER → 2025-03-24 08:45 | Outpatient (BNV) | payer MEDICARE, SELFPAY | PROVIDERS: PCP Internal Medicine; Visit Provider Radiology Diagnostic Radiology | DX: R74.01 Elevation of levels of liver transaminase levels (principal) | CPT/HCPCS: 76700 ==

== ENCOUNTER 2025-05-06 09:52 | Outpatient (REF) | payer MEDICARE, SELFPAY ==
--- NOTE | ~2025-05-06 | FL_ITS ---
EXAMINATION: RF barium swallow with air CLINICAL INFORMATION: Difficulty swallowing solids COMPARISON: None available. TECHNIQUE: Barium swallow was performed using thin and thick barium and effervescent granules. Barium tablet was also administered. FINDINGS: There is trace laryngeal penetration seen with liquid barium. No aspiration was visualized real-time during fluoroscopy however later images demonstrate small amount of contrast in the proximal trachea suggestive of aspiration. There is abnormal esophageal motility. There is mucosal irregularity and feline contractions suggestive of esophagitis. There is a small sliding type hiatal hernia and Schatzki ring. There is stasis of the barium tablet at the GE junction. There is moderate gastroesophageal reflux. No mass or stricture is seen. FLUOROSCOPY TIME: 2 minutes 36 seconds DOSE AREA PRODUCT: 1502 uGy-m2 (microgray-meter squared) FL/FL barium swallow with air IMPRESSION: Small amount of aspiration. Very abnormal esophageal motility. Moderate gastroesophageal reflux. Feline contractions and mucosal irregularity suggestive of esophagitis. Small sliding type hiatal hernia with Schatzki ring and stasis of the barium tablet at the GE junction. Recommend endoscopy correlation. Electronically signed by: Seda Delong MD 05/06/2025 10:58 AM [facility]
--- OUTSIDE RECORDS SUMMARY | 2025-05-06 11:15 | XMS_ITS | Encounter Summary ---
Author Organization [employer] Address [address] [place] [address] 7[address] [place] [address] Care Team Providers Care Lamination Operator Name Role Phone Lisseth Cervantes MD Primary Care Provider [phone]- [phone] Encounter Details Date Type Department Care Team ([facility] st Contact Info) Description 01/04/2023 Orders Only [facility] MED & PEDS [address] [place], [place] [phone] Lisseth Cervantes MD [address] [place], [place] [phone] Macrocytosis (Primary Dx) Social History Tobacco Use [...] documented as of this encounter Care Teams Lamination Operator Relationship Specialty Start Date End Date Lisseth Cervantes MD [address] [place] [phone] PCP - General Internal Medicine 07/01/18 documented as of this encounter
--- OUTSIDE RECORDS SUMMARY | 2025-05-06 11:15 | XMS_ITS | Clinical Summary ---
Author Organization [employer] Address [address] [facility] [address] [place] [address] Care Team Providers Care Clerk Name Role Phone Lisseth Cervantes MD Primary Care Provider [phone]- [phone] Allergies No known active allergies Medications Diclofenac [...] Encounters Date Type Department Care Team Description 04/30/2025 Orders Only [facility] MED [facility] P[facility] [address] [place] [address] Lisseth Cervantes MD Oral phase dysphagia (Primary Dx) 04/09/2025 Results Follow-Up [facility] [address] [place] [address] Radhika Rodriguez RN US Abdomen Complete from Last 3 Months Immunizations Immunization Administration [...] Procedure Name Priority Date/Time Associated Diagnosis Comments FL ESOPHAGUS BARIUM SWALLOW WITH AIR Routine 05/06/2025 10:09 AM EST US ABDOMEN COMPLETE Routine 03/24/2025 9 :10 AM EDT Transaminitis LIPID PANEL, STANDARD Routine 12/30/2024 11:04 AM EDT Elevated TSH Hyponatremia from Last 3 Months or Most Recently Relevant to Health Maintenance Results * FL Esophagus Barium Swallow w/Air (05/06/2025 10:09 AM EST) Anatomical Region Laterality Modality Head, Neck Radiographic Kandy ging 05/06/2025 10:0 9 AM EST Narrative 05/06/2025 11:01 AM EST [place] [address] Fluoroscopy Report Signed Patient: Rafi Bhandari MR#: [id number] 1 : 1935 Acct:[id number] Age/Sex: 89 / M ADM Date: 05/06/25 Loc: HO.XRAY Attending Dr: Lisseth Cervantes MD Ordering Physician: Lisseth Cervantes MD Date of Service: 05/06/25 Procedure(s): FL barium swallow with air Accession Number(s): [id number] cc: Lisseth Cervantes MD Reason for Exam: Difficulty swallowing solids EXAMINATION: RF barium swallow with air CLINICAL INFORMATION: Difficulty swallowing solids COMPARISON: None available. TECHNIQUE: Barium swallow was performed using thin and thick barium and effervescent granules. Barium tablet was also administered. FINDINGS: There is trace laryngeal penetration seen with liquid barium. No aspiration was visualized real-time during fluoroscopy however later images demonstrate small amount of contrast in the proximal trachea suggestive of aspiration. There is abnormal esophageal motility. There is mucosal irregularity and feline contractions suggestive of esophagitis. There is a small sliding type hiatal hernia and Schatzki ring. There is stasis of the barium tablet at the GE junction. There is moderate gastroesophageal reflux. No mass or stricture is seen. FLUOROSCOPY TIME: 2 minutes 36 seconds DOSE AREA PRODUCT: 1502 uGy-m2 (microgray-meter squared) FL/FL barium swallow with air IMPRESSION: Small amount of aspiration. Very abnormal esophageal motility. Moderate gastroesophageal reflux. Feline contractions and mucosal irregularity suggestive of esophagitis. Small sliding type hiatal hernia with Schatzki ring and stasis of the barium tablet at the GE junction. Recommend endoscopy correlation. Electronically signed by: Seda Delong MD 05/06/2025 10:58 AM EST Dictated By: Seda Delong MD Signed By: <Electronically signed by Seda Delong MD in OV> 05/06/25 1058 DD/ 1009 TD/TT: 05/06/25 1020 Aboriginal Education Teacher: URIEL Procedure Note Donotuseinterpreter, Image - 05/06/[address] [address] Fluoroscopy Report Signed Patient: Rafi BhandariMR#: [id number] 1 : 1935cct:[id number] Age/Sex: 89 / MADM Date: 05/06/25 Loc: HO.XRAY Attending Dr: Lisseth Cervantes MD Ordering Physician: Lisseth Cervantes MD Date of Service: 05/06/25 Procedure(s): FL barium swallow with air Accession Number(s): [id number] cc: Lisseth Cervantes MD Reason for Exam: Difficulty swallowing solids EXAMINATION: RF barium swallow with air CLINICAL INFORMATION: Difficulty swallowing solids COMPARISON: None available. TECHNIQUE: Barium swallow was performed using thin and thick barium and effervescent granules. Barium tablet was also administered. FINDINGS: There is trace laryngeal penetration seen with liquid barium. No aspiration was visualized real-time during fluoroscopy however later images demonstrate small amount of contrast in the proximal trachea suggestive of aspiration. There is abnormal esophageal motility. There is mucosal irregularity and feline contractions suggestive of esophagitis. There is a small sliding type hiatal hernia and Schatzki ring. There is stasis of the barium tablet at the GE junction. There is moderate gastroesophageal reflux. No mass or stricture is seen. FLUOROSCOPY TIME: 2 minutes 36 seconds DOSE AREA PRODUCT: 1502 uGy-m2 (microgray-meter squared) FL/FL barium swallow with air IMPRESSION: Small amount of aspiration. Very abnormal esophageal motility. Moderate gastroesophageal reflux. Feline contractions and mucosal irregularity suggestive of esophagitis. Small sliding type hiatal hernia with Schatzki ring and stasis of the barium tablet at the GE junction. Recommend endoscopy correlation. Electronically signed by: Seda Delong MD 05/06/2025 10:58 AM EST Dictated By: Seda Delong MD Signed By: <Electronically signed by Sdea Delong MD in OV> 05/06/25 1058 DD/ 1009 TD/TT: 05/06/25 1020 Aboriginal Education Teacher: URIEL us Lisseth Cervantes MD IMG FLUOROSCOPY PROCEDURES Final Result * US Abdomen Complete (03/24/2025 9:10 AM EDT) Anatomical Region Laterality Modality Abdomen Ultrasound 03/24/2025 9:10 AM EDT Narrative 03/24/2025 10:57 AM EDT [place] [address] Ultrasound Report Signed Patient: Rafi Bhandari MR#: [id number] 1 : 1935 Acct:[id number] Age/Sex: 89 / M ADM Date: 03/24/25 Loc: HO.US Attending Dr: Lisseth Cervantes MD Ordering Physician: Lisseth Cervantes MD Date of Service: 03/24/25 Procedure(s): US abdomen complete Accession Number(s): [id number] cc: Lisseth Cervantes MD Reason for Exam: Elevation of levels of liver transaminase levels EXAMINATION: US ABDOMEN COMPLETE CLINICAL INFORMATION: Elevated LFTs. COMPARISON: February 16, 2022 TECHNIQUE: Real-time ultrasound of the abdomen using grayscale technique. FINDINGS: PANCREAS: No peripancreatic fluid collections. ABDOMINAL AORTA: The proximal, mid, and distal segments are normal in caliber. INFERIOR VENA CAVA: Visualized portions are normal. LIVER: Liver measures 15 cm. Coarse echotexture. No nodular contour surface. No gross focal solid or cystic lesion detected. No intrahepatic biliary ductal dilatation. GALLBLADDER: Fluid-filled and nondistended. No pericholecystic fluid collection or gallbladder wall thickening. COMMON BILE DUCT: 4 mm. RIGHT KIDNEY: 10 cm. Normal echotexture. Normal renal cortical thickness. No hydronephrosis. No gross solid or cystic lesion. LEFT KIDNEY: 10 cm. Normal echotexture. Normal renal cortical thickness. No hydronephrosis. No solid or cystic lesion.. SPLEEN: 9 cm. No focal lesion.. FREE FLUID: None. US/US abdomen complete IMPRESSION: Probable hepatic steatosis. No cholelithiasis. No hydronephrosis. No ascites. Electronically signed by: Jose Mendoza MD 03/24/2025 10:54 AM EDT RP Dictated By: Jose Lowe MD Signed By: <Electronically signed by Jose [place] MD in OV> 03/24/25 1054 DD/ 0910 TD/TT: 03/24/25 0920 Aboriginal Education Teacher: Procedure Note Donotuseinterpreter, Image - 03/24/2025 [place] [address] Ultrasound Report Signed Patient: Rafi BhandariMR#: [id number] 1 : 1935cct:[id number] Age/Sex: 89 / MADM Date: 03/24/25 Loc: HO.US Attending Dr: Lisseth Cervantes MD Ordering Physician: Lisseth Cervantes MD Date of Service: 03/24/25 Procedure(s): US abdomen complete Accession Number(s): [id number] cc: Lisseth Cervantes MD Reason for Exam: Elevation of levels of liver transaminase levels EXAMINATION: US ABDOMEN COMPLETE CLINICAL INFORMATION: Elevated LFTs. COMPARISON: February 16, 2022 TECHNIQUE: Real-time ultrasound of the abdomen using grayscale technique. FINDINGS: PANCREAS: No peripancreatic fluid collections. ABDOMINAL AORTA: The proximal, mid, and distal segments are normal in caliber. INFERIOR VENA CAVA: Visualized portions are normal. LIVER: Liver measures 15 cm. Coarse echotexture. No nodular contour surface. No gross focal solid or cystic lesion detected. No intrahepatic biliary ductal dilatation. GALLBLADDER: Fluid-filled and nondistended. No pericholecystic fluid collection or gallbladder wall thickening. COMMON BILE DUCT: 4 mm. RIGHT KIDNEY: 10 cm. Normal echotexture. Normal renal cortical thickness. No hydronephrosis. No gross solid or cystic lesion. LEFT KIDNEY: 10 cm. Normal echotexture. Normal renal cortical thickness. No hydronephrosis. No solid or cystic lesion.. SPLEEN: 9 cm. No focal lesion.. FREE FLUID: None. US/US abdomen complete IMPRESSION: Probable hepatic steatosis. No cholelithiasis. No hydronephrosis. No ascites. Electronically signed by: Jose Mendoza MD 03/24/2025 10:54 AM EDT Dictated By: Jose Lowe MD Signed By: <Electronically signed by Jose [place] MDin OV> 03/24/25 1054 DD/ 0910 TD/TT: 03/24/25 0920 Aboriginal Education Teacher: us Lisseth Cervantes MD IMG US PROCEDURES Final Res ult * (ABNORMAL) Lipid Panel, Standard (12/30/2024 11:04 AM EDT) Triglycerides 64 <150 mg/dL [facility] Comment:Desirable Triglyceri de: less than 150 mg/dLBorderline High Triglyceride 150-199 mg/dLHigh Triglyceride: 200-499 mg/dLVery High Triglyceride: greater than or equal to 5OO mg/dL Cholesterol 185 <200 mg/dL [facility] Comment:Desirable Cholestero l: less than 200 mg/dLBorderline High Cholesterol: 200-239 mg/dLHigh Cholesterol: greater than 239 mg/dL LDL Cholesterol Calculated 107(H) <100 mg/dL [facility] Comment:Desirable LDL: less than 100 mg/dLNear Optimal/Above Optimal LDL: 110- 129 mg/dLBorderline High LDL: 130-159 mg/dLHigh LDL: 160-189 mg/dLVery High LDL: greater than or equal to 190 mg/dL HDL Cholesterol 66 >40 mg/dL [facility] Comment:Desirable HDL: great er than 40 mg/dL Note: This HDL assay may give artificially low results in patients with liver disease. Blood Venous blood specimen / Unknown 12/30/2024 11:04 AM EDT 12/30/2024 2:49 PM EDT us Lisseth Cervantes MD LAB BLOOD ORDERABLES Final Result [facility] [address] [place] [phone] from Last 3 Months or Most Recently Relevant to Health Maintenance Insurance [place] [address] [place] [id number] [facility] MEDEX MEDICARE SUPPLEMENT Care Teams Clerk Relationship Specialty Start Date End Date Lisseth Cervantes MD [address] [place] [phone] PCP - General Internal Medicine 07/01/18
--- OUTSIDE RECORDS SUMMARY | 2025-05-06 11:15 | XMS_ITS | Encounter Summary ---
Author Organization [employer] Address [address] [place] [address] 7t [place] [address] Care Team Providers Care Mac Artist Name Role Phone Lisseth Cervantes MD Primary Care Provider [phone]- [phone] Encounter Details Date Type Department Care Team ([facility] st Contact Info) Description 11/13/2024 Orders Only [facility] MED [facility] PEDS [address] [place], [place] [phone] Lisseth Cervantes MD [address] [place], [place] [phone] Other male erectile dysfunction Social History Tobacco [...] documented as of this encounter Care Teams Mac Artist Relationship Specialty Start Date End Date Lisseth Cervantes MD [address] [place] [phone] PCP - General Internal Medicine 07/01/18 documented as of this encounter
--- OUTSIDE RECORDS SUMMARY | 2025-05-06 11:15 | XMS_ITS | Clinical Summary ---
Author Organization [facility] Address [address] [place] [address] Care Team Providers Care Horse Trainer Name Role Phone Unavailable Primary Care Provider [...]
--- OUTSIDE RECORDS SUMMARY | 2025-05-06 11:15 | XMS_ITS | Encounter Summary ---
Author Organization [employer] Address [address] [place] [address] 7 [place] [address] Care Team Providers Care Cis Coordinator Name Role Phone Lisseth Cervantes MD Primary Care Provider [phone]- [phone] Reason for Referral * Medications - Closed Specialty Diagnoses / Procedures Referred By Brandan ace Referred To Contact Diagnoses Other male erectile dysfunction Lisseth Cervantes MD [address] [place] [address] Phone: tel: fax: Referral ID Status Reason Start Date Expiration Date Visits Re quested Visits Authorized [id number] Closed 1 1 Encounter Details Date Type Department Care Team ([facility] Contact Info) Description 02/02/2025 Orders Only [facility] MED & PEDS [address] [place], [place] [phone] Lisseth Cervantes MD [address] [place], [place] [phone] Other male erectile dysfunction; Other male erectile [...] documented as of this encounter Care Teams Cis Coordinator Relationship Specialty Start Date End Date Lisseth Cervantes MD [address] [place] [id number] PCP - General Internal Medicine 07/01/18 documented as of this encounter
--- OUTSIDE RECORDS SUMMARY | 2025-05-06 11:15 | XMS_ITS | Encounter Summary ---
Author Organization [employer] Address [address] [place] [address] [address] [place] [address] Care Team Providers Care Autism Motor Specialist Name Role Phone Lisseth Cervantes MD Primary Care Provider [phone]- [phone] Encounter Details Date Type Department Care Team ([facility] st Contact Info) Description 04/30/2025 Orders Only [facility] CH[facility] MED & PEDS [address] [place], [place] [phone] Lisseth Cervantes MD [address] [place], [place] [phone] Oral phase dysphagia (Primary Dx) Social History Tobacco Use Types [...] t he electric, gas, oil or water [employer] threatened to shut off services in your [...] on file documented as of this encounter Procedures Procedure Name Priority Date/Time Associated Diagnosis Comments FL ESOPHAGUS BARIUM SWALLOW WITH AIR Routine 05/06/2025 10:09 AM EST documented in this encounter Results * FL Esophagus Barium Swallow w/Air (05/06/2025 10:09 AM EST) Anatomical Region Laterality Modality Head, Neck Radiographic Kandy ging 05/06/2025 10:0 9 AM EST Narrative 05/06/2025 11:01 AM EST [place] [address] Fluoroscopy Report Signed Patient: Rafi Bhandari MR#: [id number] 1 : 1935 Acct:[id number] Age/Sex: 89 / M ADM Date: 05/06/25 Loc: [facility] Attending Dr: Lisseth Cervantes MD Ordering Physician: Lisseth Cervantes MD Date of Service: 05/06/25 Procedure(s): FL barium swallow with air Accession Number(s): [id number] cc: Lisseth Cervantes MD Reason for Exam: [...] 05/06/25 1058 DD/ 1009 TD/TT: 05/06/25 1020 Director Sales Support: URIEL Procedure Note Donotuseinterpreter, Image - 05/06/2025 [place] [address] Fluoroscopy Report Signed Patient: Rafi BhandariMR#: [id number] 1 : [id number] Age/Sex: 89 / MADM Date: 05/06/25 [facility]: Lisseth Cervantes MD Ordering Physician: Lisseth Cervantes MD Date of Service: 05/06/25 Procedure(s): FL barium swallow with air Accession Number(s): [id number] cc: Lisseth Cervantes MD Reason for Exam: [...] by: Seda Delong MD 05/06/2025 10:58 AM [facility] Dictated By: Seda Delong MD Signed By: <Electronically signed by Seda Delong MD in OV> 05/06/25 1058 DD/ 1009 TD/TT: 05/06/25 1020 Director Sales Support: URIEL Lisseth Cervantes MD IMG FLUOROSCOPY PROCEDURES Final Result documented in this encounter Visit Diagnoses Diagnosis Oral phase dysphagia- Primary Dysphagia, oral phase documented in this encounter Additional Health Concerns Assessment Noted Time PHQ-9 Depression Total Score: 2 12/31/19 25 10:38 AM EDT documented as of this encounter Care Teams Autism Motor Specialist Relationship Specialty Start Date End Date Lisseth Cervantes MD [address] [place] [id number] PCP - General Internal Medicine 07/01/18 documented as of this encounter
--- OUTSIDE RECORDS SUMMARY | 2025-05-06 11:15 | XMS_ITS | Encounter Summary ---
Author Organization [employer] Address [address] [place] [address] [address] [place] [address] Care Team Providers Care Interventionist Name Role Phone Lisseth Cervantes MD Primary Care Provider [phone]- [phone] Encounter Details Date Type Department Care Team ([facility] st Contact Info) Description 12/10/[address] [facility] CH[facility] MED & PEDS [address] [place], [place] [phone] Lisseth Cervantes MD [address] [place], [place] [phone] Transaminitis (Primary Dx); Vitamin B12 deficiency; Folic [...] documented as of this encounter Care Teams Interventionist Relationship Specialty Start Date End Date Lisseth Cervantes MD [address] [place] [id number] PCP - General Internal Medicine 07/01/18 documented as of this encounter
== END 2025-05-06 09:53 | disposition home or self-care (01) ==
LOC: HO.XRAY 09:52
PROVIDERS: PCP Internal Medicine; Visit Provider Internal Medicine
DX: R13.11 Dysphagia, oral phase (principal)
CPT/HCPCS: 74221

== ENCOUNTER → 2025-05-06 09:54 | Outpatient (BNV) | payer MEDICARE, SELFPAY | PROVIDERS: PCP Internal Medicine; Visit Provider Radiology Diagnostic Radiology | DX: K21.9 Gastro-esophageal reflux disease without esophagitis (principal); K44.9 Diaphragmatic hernia without obstruction or gangrene | CPT/HCPCS: 74221 ==

== ENCOUNTER 2025-06-11 10:36 | Outpatient (REF) | payer MEDICARE, SELFPAY ==
[2025-06-11 15:08] LABS: MANUAL DIFF FLAG NO
[2025-06-11 15:21] LABS: Hematocrit 39.8 % (42.0-52.0); Hemoglobin 13.9 g/dl (14.0-18.0); Imm Gran Abs Auto 0.03 X10*3/uL (0.00-0.03); Imm Gran Pct Auto 0.3 % (0.0-0.4); Lymphocytes Absolute Auto 1.9 X10*3/uL (1.2-4.9); Mean Corpuscular HGB Conc 34.9 g/dl (31.0-36.0); Mean Corpuscular Hemoglobin 34.8 pg (27.0-33.0); Mean Corpuscular Volume 99.5 fL (80.0-98.0); NRBC Abs Auto 0.000 X10*3/uL (0.0-0.012); NRBC Pct Auto 0.0 /100WBC (0.0-0.2); Platelet Count 291 X10*3/uL (160-400); Red Blood Count 4.00 X10*6/uL (4.60-5.80); White Blood Count 8.9 X10*3/uL (4.8-10.8)
[2025-06-11 15:22] LABS: INTERNATIONAL NORM RATIO 1.0 (0.9-1.1); Prothrombin Time 12.5 SEC (11.2-13.5)
[2025-06-11 15:40] LABS: Alanine Aminotransferase 20 U/L (0-40); Albumin Level 4.0 g/dL (3.5-5.0); Alkaline Phosphatase 78 U/L (39-117); Aspartate Amino Transferase 34 U/L (5-37); Total Protein 6.9 g/dL (6.5-8.0)
== END 2025-06-11 10:37 | disposition home or self-care (01) ==
LOC: HO.CHCLDS 10:36
PROVIDERS: Visit Provider Internal Medicine
DX: D69.2 Other nonthrombocytopenic purpura (principal)
CPT/HCPCS: 36415; 80076; 85025; 85610